=== PATIENT | female | born 1950 | race Caucasian/White ===

== ENCOUNTER 2017-09-01 15:12 | Outpatient (CLI) | payer MEDICARE, MEDICAID | END 2017-09-01 15:13 | disposition home or self-care (01) | LOC: BICRAD 15:12 | PROVIDERS: ATTEND Anesthesiology Pain Medicine | DX: M47.892 Other spondylosis, cervical region (principal) | CPT/HCPCS: 72050 ==

== ENCOUNTER 2020-10-29 15:59 | Outpatient (CLI) | payer MEDICARE, MEDICAID | END 2020-10-29 16:00 | disposition home or self-care (01) | LOC: BICMRI 15:59 | PROVIDERS: ATTEND Anesthesiology Pain Medicine | DX: M48.062 Spinal stenosis, lumbar region with neurogenic claudication (principal); M16.12 Unilateral primary osteoarthritis, left hip; M47.816 Spondylosis without myelopathy or radiculopathy, lumbar region; M51.36 Other intervertebral disc degeneration, lumbar region; M41.9 Scoliosis, unspecified; M48.07 Spinal stenosis, lumbosacral region | CPT/HCPCS: 72148 ==